=== PATIENT | male | born 1960 ===

== ENCOUNTER 2018-01-10 18:29 | Inpatient (IN) ==
[2018-01-11] MEDS ORDERED: Aluminum/Magnesium/Simethacone Susp 30 ML UDC PO PRN (03:26)
[2018-01-11] MEDS ORDERED: LORazepam 1 MG Tablet PO PRN (03:57)
[2018-01-11 08:34] LABS: Baso % (Auto) 0.5 % (0.0-2.0); Eos # (Auto) 0.1 th/mm3 (0.0-0.4); Eos % (Auto) 1.2 % (0.0-4.0); Hematocrit 45.7 % (39.0-51.0); Hemoglobin 15.2 gm/dL (13.0-17.0); Lymph # (Auto) 1.7 th/mm3 (1.0-4.8); Lymph % (Auto) 22.1 % (9.0-44.0); Mean Corpuscular HGB Conc 33.3 % (32.0-36.0); Mean Corpuscular Hemoglobin 31.8 pg (27.0-34.0); Mean Corpuscular Volume 95.7 fL (80.0-100.0); Mean Platelet Volume 6.7 fL (7.0-11.0); Mono # (Auto) 0.4 th/mm3 (0.0-0.9); Mono % (Auto) 4.8 % (0.0-8.0); Neut # (Auto) 5.5 th/mm3 (1.8-7.7); Neut % (Auto) 71.4 % (16.0-70.0); Platelet Count 216 th/mm3 (150-450); Red Blood Count 4.77 mil/mm3 (4.50-5.90); Red Cell Distribution Width 13.8 % (11.6-17.2); White Blood Count 7.8 th/mm3 (4.0-11.0)
[2018-01-11] MEDS: Folic Acid 1 MG Tablet PO SCH (08:46)
[2018-01-11 08:57] LABS: Alanine Aminotransferase 23 U/L (12-78); Albumin 3.3 g/dL (3.4-5.0); Anion Gap 7 meq/L (5-15); Aspartate Aminotransferase 16 U/L (15-37); Blood Urea Nitrogen 10 mg/dL (7-18); Calcium 8.8 mg/dL (8.5-10.1); Carbon Dioxide 28.3 meq/L (21.0-32.0); Chloride 105 meq/L (98-107); Glomerular Filtration Rate Greater Than 89 mL/min (>89); Glucose,Random 145 mg/dL (74-106); Potassium 3.8 meq/L (3.5-5.1); Sodium 140 meq/L (136-145)
[2018-01-11 09:07] LABS: Alkaline Phosphatase 95 U/L (45-117); Thyroid Stimulating Hormone 0.793 uIU/mL (0.358-3.740); Total Protein 7.1 g/dL (6.4-8.2)
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
[2018-01-11] MEDS ORDERED: Melatonin 5 MG Tablet PO PRN (21:00)
[2018-01-12] MEDS: Folic Acid 1 MG Tablet PO SCH (09:10)
--- NOTE | 2018-01-12 09:10 | P.PNPSY ---
Subjective Remarks: Patient seen and examined with nurse. Chart reviewed. Case discussed with nursing staff. On my examination today, the patient says that he feels "on top of the world." Speech is rambling and he exhibits some loosening of associations. He remains religiously preoccupied. For example, when I asked him how his medications are treating him he replies "how is God treating me?" He does denies side effects from medications. He has no suicidal or violent ideation. He tells me that he does not have any such ideation because "I am a Men[place]." He exhibits some clang association. Denies audiovisual hallucinations but appears internally preoccupied. No physical complaints. Agreeable to titration of Latuda. Vital Signs Temp Pulse Resp BP Pulse Ox 01/12/18 06:00 98.2 F 106 H 16 145/83 H 96 01/11/18 17:04 98.6 F 104 H 18 137/81 98 Intake and Output 01/11/18 01/12/18 01/12/18 22:59 06:59 14:59 Other: Weight 59.2 kg Labs reviewed. No new labs. Review of Systems All other systems reviewed negative except as stated in HPI (Limitation: Psychosis) Mental Status Examination Appearance: Disheveled Consciousness: Alert Orientation: Person, Place (At least) Motor Activity: Normal gait, Other (No motor abnormalities noted) Speech: Rapid Language: Adequate Fund of Knowledge: Adequate Attention and Concentration: Easily distracted Memory: Impaired (Psychosis interferes) Mood: Other ("On top of the world") Affect: Other (Somewhat elevated) Thought Process & Associations: Loose associations Thought Content: Delusional Hallucination Type: None Delusion Type: Bizarre, Other (Judaism) Suicidal Ideation: No Suicidal Plan: No Suicidal Intention: No Homicidal Ideation: No Homicidal Plan: No Homicidal Intention: No Insight: Poor Judgment: Poor Assessment and Plan - Assessment (1) Schizoaffective disorder, bipolar type Code(s): F25.0 - Schizoaffective disorder, bipolar type Status: Acute - Plan Plan: Titrate Latuda to 60 mg daily with dinner to target residual psychiatric symptoms. To consider further titration of this agent if needed. Continue to monitor on the high acuity unit. Continue other medications and care as ordered. Justification for Continued Inpatient Stay: Medication changes. Impairment in reality construction. High risk for decompensation in less restrictive environment. Discharge Planning: Pending psychiatric stabilization Request Healthcare Surrogate/Guardian Advocate?: No
[2018-01-12 09:51] LABS: Chol/HDL Ratio 3.07 Ratio; HDL Cholesterol 63.5 mg/dL (40.0-60.0)
[2018-01-12 13:10] LABS: Hemoglobin A1c 5.1 % (4.3-6.0)
--- NOTE | 2018-01-13 06:56 | ECG ---
Date Performed: 01/11/2018 Time Performed: 12:55:42 PTAGE: 57 years EKG: SINUS TACHYCARDIA POSSIBLE RIGHT ATRIAL ENLARGEMENT BORDERLINE RIGHT AXIS DEVIATION ABNORMA L RHYTHM ECG NO PREVIOUS TRACING DOCTOR: Amol Paez Interpretating Date/Time 01/13/2018 06:53:20
[2018-01-13] MEDS: Folic Acid 1 MG Tablet PO SCH (08:18)
--- NOTE | 2018-01-13 09:52 | P.TTN ---
- Patient Problems Problems: 1. Discharge planning 2. Medication compliance 3. Knowledge deficit 4. Lack of coping skills - Progress Toward Goals Provider Present: Dr. Ambrocio Singh (Patient needs to remain for further stabilization.) Psychiatric Counselors Present: Donavan Hernandez Jr., [facility] (Counselor will meet with the patient to discuss a safe discharge plan.) Group Spec/RT/OT/LEVIN Present: VIN Rios (Patient does not attend groups.) - Documentation Teaching Recipient: Patient
--- NOTE | 2018-01-13 11:16 | P.PNPSY ---
Subjective Remarks: Patient seen and examined with nurse. Chart reviewed. Case discussed with nursing staff who reports patient remains fairly delusional and rambles about beams. He is easily agitated and paranoid per nursing staff. Case discussed in treatment team. On my examination today, the patient remains delusional. He exhibits an ongoing oriental orthodox preoccupation. He rambles about his Social Security card having the jigar of the beast and then attributes special significance to different components of his social security number. He has made some cat drawings colored in the style of the later work of Cornelio Terrell, and when I complement him on his work he goes on an extended narrative about how his sister had a cat, Susan. Patient notes that his middle name is Bauer and his last initial is C, or "Bauer C" and so he believes that he was somehow in his sister's cat. Denies side effects from medications. Continues to insist that Latuda monotherapy was adequate for management of his psychiatric condition in the past and is somewhat resistant to discussing other options. No physical complaints. Vital Signs Temp Pulse Resp BP Pulse Ox 01/13/18 05:29 98.3 F 115 H 17 143/91 H 98 Laboratory Results - last 24 hr 01/12/18 08:56 Hemoglobin A1c 5.1 Labs reviewed. Review of Systems All other systems reviewed negative except as stated in HPI (Limitation: Psychosis) Mental Status Examination Appearance: Disheveled Consciousness: Alert Orientation: Person, Place (At least) Motor Activity: Normal gait, Other (No abnormal motor movements noted. No signs of withdrawal noted.) Speech: Unremarkable Language: Adequate Fund of Knowledge: Adequate Attention and Concentration: Easily distracted Memory: Impaired (Psychosis interferes) Mood: Other (Remain somewhat elevated) Affect: Other (Somewhat expansive) Thought Process & Associations: Loose associations Thought Content: Delusional Hallucination Type: None Delusion Type: Bizarre, Other ([employer]) Suicidal Ideation: No Homicidal Ideation: No Insight: Poor Judgment: Poor Assessment and Plan - Assessment (1) Schizoaffective disorder, bipolar type Code(s): F25.0 - Schizoaffective disorder, bipolar type Status: Acute - Plan Plan: Titrate Latuda to 80 mg daily with dinner. To consider a different antipsychotic or addition of a mood stabilizer, although as noted above patient is resistant to medication changes. Continue to monitor on high acuity unit. Counselor to try to obtain collateral information. Continue other medications and care as ordered. Justification for Continued Inpatient Stay: Medication changes. Impairment in reality construction. High risk for decompensation and less restrictive environment. Discharge Planning: Pending psychiatric stabilization. Request Healthcare Surrogate/Guardian Advocate?: No
[2018-01-13] MEDS ORDERED: Lurasidone 80 MG Tablet PO SCH (17:00)
[2018-01-14] MEDS: Folic Acid 1 MG Tablet PO SCH (09:42)
--- NOTE | 2018-01-14 09:57 | P.PNPSY ---
Subjective Remarks: Patient seen and examined with nurse. Chart reviewed. Case discussed with nursing staff. Patient reportedly became upset overnight because he could not have S[employer] mar[employer] and scrawled "FU" on the nursing station glass before bowdlerizing this to "[employer]." On my examination today, the patient continues to display fairly significant loosening of associations and derailment. He continues to exhibit some clang associations and punning. He rambles about [employer] [place] and then tells me about his mother, reportedly named Lily, and finally rehearses his narrative about how his father was a [employer]. Speech is a little less rapid. No side effects from medications. No physical complaints. Vital Signs Temp Pulse Resp BP Pulse Ox 01/14/18 05:47 98.4 F 101 H 18 125/82 98 01/13/18 18:31 98.5 F 93 H 19 138/92 H 98 Labs reviewed. Review of Systems All other systems reviewed negative except as stated in HPI (Limitation: Poor historian) Mental Status Examination Appearance: Disheveled Consciousness: Alert Orientation: Person, Place (At least) Motor Activity: Normal gait, Other (No motoric abnormalities noted or signs of withdrawal noted.) Speech: Unremarkable Language: Adequate Fund of Knowledge: Adequate Attention and Concentration: Easily distracted Memory: Impaired (Psychosis interferes) Mood: Irritable Affect: Irritable Thought Process & Associations: Loose associations Thought Content: Delusional Hallucination Type: None Delusion Type: Bizarre, Other (No yazidi material verbalized today) Suicidal Ideation: No Homicidal Ideation: No Insight: Poor Judgment: Poor Assessment and Plan - Assessment (1) Schizoaffective disorder, bipolar type Code(s): F25.0 - Schizoaffective disorder, bipolar type Status: Acute - Plan Plan: Titrate Latuda to 100 mg daily with dinner for management of residual psychiatric symptoms. I have suggested to the patient that he might benefit from addition of lithium or another mood stabilizing agent, but he has declined. Continue to monitor on the high acuity unit. Continue other medications and care as ordered. Justification for Continued Inpatient Stay: Medication changes. High risk for decompensation in less restrictive environment. Discharge Planning: Pending psychiatric stabilization Request Healthcare Surrogate/Guardian Advocate?: No
[2018-01-15] MEDS: Acetaminophen 325 MG Tablet PO PRN ×2 (03:43→10:28)
[2018-01-15] MEDS: Folic Acid 1 MG Tablet PO SCH (08:21)
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
[2018-01-15] MEDS ORDERED: Naproxen 250 MG Tablet PO PRN (15:00)
--- NOTE | 2018-01-15 15:12 | P.PNWCN ---
Wound Care Nurse Consult Description: Received wound management consult for wound management of R forehead from Doctor Samantha. Communicated with: Spoke with RN Vanda Recommendation: Please get order from Doctor to remove sutures from forehead wound Cleanse scabbed area with normal saline or wound cleanser and pat dry. Apply bacitracin to scab as ordered by physician and leave open to air. Wound/Pressure Injury - Wound R Forehead Wound Assessment: Ongoing Wound Type: Laceration (sutures in place with scab) Is This a Chronic Wound: No Requested from Provider a Wound Care Consult: Yes (Wound care saw patient) Length (cm): 6 (~6cm) Width (cm): 2 (~2cm) Depth (cm): 0 (scab) Wound Bed Appearance: Scab with ~[address] Surrounding Tissue Appearance: [place] Surrounding Tissue Temperature: Cool Drainage Amount: None Drainage Odor: No Odor Dressing Status: Open to Air Cleansing Solution: Wound cleasner Wound Margin Description: poorly defined - Additional Information Patient seen on the 2700 unit of [facility] for wound management of R forehead.Patient is sitting in room, cleansed wound on R forehead with wound cleanser and gauze pad. Scab is firmly adherent.Light brown Sutures are noted in place on scab. Per Patient these have been in since the 12/21 and plastic surgeon put them in while he was in [place]. Sutures need to be removed. RN to remove sutures once order is obtained for suture removal, and apply bacitracin ointment to scab as ordered by physician
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
[2018-01-15 17:38] VITALS: O2SAT 99
[2018-01-16 05:48] VITALS: BP 136/72; PULSE 101; RESP 16; TEMP 98.5
[2018-01-16] MEDS: Folic Acid 1 MG Tablet PO SCH (09:51)
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
--- NOTE | 2018-01-16 13:55 | P.PNWCN ---
Wound Care Nurse Consult Description: Received Vocera call from Risk management today demanding assistance with suture removal around 1200 requesting I be there by 1pm for assistance due to pending d/c. Communicated with: DAVID Reynolds and TOM Wen, DAVID Reynolds notified Doctor Singh Recommendation: Patient need lidocaine either injectable or topical prior to suture removal, will need physician to do this, sutures are embedded and very hard to see. Recommended patient wait for suture removal, patient wants to leave. Please instruct patient to follow up with surgeon who put sutures in place. Continue bacitracin as ordered to area and leave open to air. Wound/Pressure Injury - Wound Right Forehead Wound Type: Laceration (sutures in place with scab) Is This a Chronic Wound: No Requested from Provider a Wound Care Consult: Yes (Wound care saw yesterday) Wound Bed Appearance: Scab with ~[address] Surrounding Tissue Appearance: [place] Surrounding Tissue Temperature: Cool Drainage Amount: None Drainage Odor: No Odor Dressing Status: Open to Air - Additional Information Patient seen on 2700 after vocera call demanding wound care nurse assist with suture removal of forehead laceration with scab. Patient was escorted to treatment room and scabbed laceration was cleansed with wound cleanser and patted dry. Attempted to remove sutures. Was able to only remove one suture, patient has poor tolerance of suture removal due to pain. Lidocaine is needed, sutures are embedded and require physician to remove. Spoke with DAVID Reynolds and TOM Wen regarding this. Doctor Evangelina was notified. Patient did not want to wait and wishes to be discharged now. LIBRARIAN HEAD to discharge patient with instruction to follow up with surgeon in [place] who applied suture for suture removal.
== END 2018-01-16 14:10 | disposition left against medical advice (07) ==
LOC: H270 01-11 00:05
PROVIDERS: ADMIT Psychiatry & Neurology Psychiatry; ATTEND Psychiatry & Neurology Psychiatry